=== PATIENT | male | born 1980 | race Caucasian/White ===

== ENCOUNTER 2024-10-21 05:52 | Emergency (ER) | payer BC, SELFPAY ==
--- NOTE | 2024-10-21 05:45 | DI.RAD_ITS ---
Exam(s) XR ANKLE RT COMPLETE EXAM: XR ANKLE RT COMPLETE CLINICAL HISTORY: trauma. TECHNIQUE: 2D digital imaging was performed. COMPARISON: No exams were available for comparison FINDINGS: 3 views There is a nondisplaced oblique fracture in the distal fibula at the diaphysis- metaphysis junction. There is overlying soft tissue swelling. There is no widening of the ankle mortise. Medial malleolus and talar dome appear unremarkable. There appears to be also nondisplaced fracture of the posterior malleolus of the distal tibia seen on the lateral view although there is a possibly that this may be just part of the fibular fracture seen through the tibia. Incidentally noted is a small inferior calcaneal spur and a prominent enthesophyte at the Achilles insertion on the posterior calcaneus. Bone density is normal. No osseous lesions. IMPRESSION: Nondisplaced distal fibular fracture as described above with overlying soft tissue swelling. Possible nondisplaced posterior malleolus fracture. This would require distal imaging for confirmation. DATA REPOSITORY: RADIATION DOSE DELIVERED:
--- NOTE | 2024-10-21 05:45 | DI.RAD_ITS ---
Exam(s) XR FOOT RT COMPLETE EXAM: XR FOOT RT COMPLETE CLINICAL HISTORY: trauma. TECHNIQUE: 2D digital imaging was performed. COMPARISON: No exams were available for comparison FINDINGS: 3 views The peripheral aspect of the field of view reveals the fracture in the distal fibula. Also possible a posterior malleolus fracture, nondisplaced. There are no fractures of the bones of the foot and no diastasis of the Lisfranc joint. Great toe metatarsophalangeal joint appears unremarkable as do the other articulations. No pes planus. Inferior calcaneal spur and posterior enthesophyte the posterior calcaneus noted IMPRESSION: No fractures in the bones of the feet but distal fibular and possible posterior tibial posterior malleolus fracture, as described on the ankle images DATA REPOSITORY: RADIATION DOSE DELIVERED:
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
[2024-10-21 05:50] VITALS: BP 132/89; PULSE 90; RESP 16; TEMP 36.6; O2SAT 99
[2024-10-21] MEDS: Ketorolac 15 MG/ML VIAL IVP (06:15)
[2024-10-21] MEDS: ACETAMINOPHEN 1,000 MG/100 ML BAG 400 MG (06:35)
[2024-10-21] MEDS: MORPHine IR 15 MG TAB PO (07:04)
--- NOTE | 2024-10-21 07:16 | DI.VRAD_ITS ---
PROCEDURE INFORMATION: Exam: XR Right Ankle Exam date and time: 10/21/2024 6:10 AM Age: 44 years old Clinical indication: Injury or trauma; Fall; Blunt trauma; Ankle and foot; Right; Injury date: 10/21/24 TECHNIQUE: Imaging protocol: Radiologic exam of the right ankle. Views: 3 or more views. COMPARISON: CR XR FOOT RT COMPLETE 10/21/2024 6:14 AM FINDINGS: Bones/joints: Nondisplaced oblique distal fibular metadiaphyseal fracture. Ankle mortise appears widened on oblique foot film. Possible nondisplaced posterior distal tibial discontinuity. Achilles calcaneal spur. Soft tissues: Lateral greater than medial soft tissue swelling. IMPRESSION: Distal fibular and possible distal posterior tibial fractures. Dictated and Authenticated by: Star Haney MD. Orderin William Mota MD
--- NOTE | 2024-10-21 07:16 | DI.VRAD_ITS ---
PROCEDURE INFORMATION: Exam: XR Right Foot Exam date and time: 10/21/2024 6:14 AM Age: 44 years old Clinical indication: Injury or trauma; Fall; Blunt trauma; Ankle and foot; Right; Injury date: 10/21/24 TECHNIQUE: Imaging protocol: Radiologic exam of the right foot. Views: 3 or more views. COMPARISON: CR XR ANKLE RT COMPLETE 10/21/2024 6:10 AM FINDINGS: Bones/joints: Distal fibular and possible posterior tibial fractures. Achilles calcaneal bone spur. Bones of foot otherwise intact. Soft tissues: Medial and lateral ankle soft tissue swelling. IMPRESSION: Distal fibular and possible posterior tibial fractures. Dictated and Authenticated by: Star Haney MD. Orderin William Mota MD
[2024-10-21 07:23] VITALS: BP 124/84; PULSE 81; RESP 16; O2SAT 98
== END 2024-10-21 07:24 | disposition home or self-care (01) ==
LOC: ER 07:33
PROVIDERS: Emergency Provider Emergency Medicine
DX: S82.831A Other fracture of upper and lower end of right fibula, initial encounter for closed fracture (principal); W23.2XXA Caught, crushed, jammed or pinched between a moving and stationary object, initial encounter
CPT/HCPCS: 99283; 99284; 96374; 27786; 96372; 73610; 73630; J0131; J1885